=== PATIENT | female | born 1990 | race American Indian/Alaskan Native ===

== ENCOUNTER 2024-10-19 08:18 | Emergency (ER) | payer MEDICAID, SELFPAY ==
[2024-10-19] VITALS (15 sets, daily range): BP systolic 87–105; BP diastolic 45–75; PULSE 53–81; RESP 8–19; TEMP 36.6–36.9; O2SAT 94–100; BMI 20.7
--- NOTE | 2024-10-19 08:25 | ED.SEIZURE ---
HPI - Seizure General Chief Complaint: Seizure Stated Complaint: Seizure Time Seen by Provider: 10/19/24 08:47 Source: patient and EMS History of Present Illness HPI Narrative: Patient is a female with a history of restless leg syndrome and drug/alcohol use who presents with a witnessed seizure in the lobby of a treatment facility. The patient has been clean for about six months and is currently on methadone. She denies any history of seizures, recent drug or alcohol use, or withdrawal seizures. The seizure occurred while she was sitting in a chair, and she did not fall or hit her head. There was no tongue biting, but she did experience urination during the event. The patient is currently on her period and denies any recent fevers or chills. She reports feeling a bit confused post-seizure but is otherwise oriented and able to answer questions. Medications: Methadone Past Medical History: Restless leg syndrome, drug/alcohol use Seizure History: none Review of Systems Review of Systems Narrative: Constitutional: Denies recent fevers or chills, reports feeling a bit confused post-seizure. Neurological: Witnessed seizure, no history of seizures, no tongue biting, postictal confusion. Genitourinary: Urination during seizure, currently on period. Patient History Social History Smoking Status: Current every day smoker Exam Narrative Exam Narrative: General: Well appearing, well nourished, in no distress. Skin: Good turgor, no rash, unusual bruising or prominent lesions. Head: Normocephalic, atraumatic. HEENT: Conjunctiva clear, EOM intact, PERRL, Mucous membranes moist. Neck: Supple, normal ROM. Heart: Regular rate and rhythm, no murmur or gallop or rubs. Lungs: Clear to auscultation. No rales, rhonchi, or wheezes. Abdomen: Soft and nontender. Bowel sounds normal. No mass or hernia. Back: Spine normal without deformity or tenderness, no CVA tenderness. Extremities: No deformities, edema. Peripheral pulses intact. Neurologic: CN 2-12 normal. Normal sensation and motor exam. Psychiatric: Oriented X3. Normal mood and affect. Initial Vital Signs Initial Vital Signs: Vital Signs Pulse Rate 81 10/19/24 08:21 Pulse Oximetry 97 10/19/24 08:21 Course Orders Ordered: ED Orders 10/19/24 08:27 CT head/brain wo con Stat 10/19/24 08:30 EKG-12 Lead Stat 10/19/24 08:50 CBC Auto Diff [Complete Blood Count AUTO DIFF] Stat CMP [Comprehensive Metabolic Panel] Stat Lactate (Lactic Acid) Stat Magnesium Stat 10/19/24 09:18 Urinalysis and Microscopic Stat Urine Culture Stat Discontinued Medications Lactated Ringer's (Lactated Ringers) 1,000 mls @ 1,000 mls/hr IV BOLUS ONE Stop: 10/19/24 09:26 Last Infusion: 10/19/24 11:44 Dose: Infused Documented By: Admin: 10/19/24 09:30 Dose: 1,000 mls/hr Documented By: Vital Signs Vital signs: Vital Signs - 8 hr 10/19/24 08:21 10/19/24 08:30 10/19/24 08:31 Temperature 98 F Pulse Rate 81 73 74 Respiratory Rate 19 16 Blood Pressure 105/75 Pulse Oximetry 97 98 100 Oxygen Delivery Method Room Air 10/19/24 09:10 10/19/24 09:11 10/19/24 09:11 Temperature Pulse Rate 66 66 Respiratory Rate 18 Blood Pressure 104/65 Pulse Oximetry 96 95 Oxygen Delivery Method Room Air 10/19/24 09:30 10/19/24 09:30 10/19/24 10:00 Temperature Pulse Rate 67 62 Respiratory Rate 15 10 L Blood Pressure 94/58 L Pulse Oximetry 95 98 Oxygen Delivery Method 10/19/24 10:00 10/19/24 10:30 10/19/24 10:30 Temperature Pulse Rate 54 L Respiratory Rate 10 L Blood Pressure 97/73 96/59 L Pulse Oximetry 96 Oxygen Delivery Method 10/19/24 11:00 10/19/24 11:00 Temperature Pulse Rate 54 L Respiratory Rate 8 L Blood Pressure 92/61 Pulse Oximetry 96 Oxygen Delivery Method MDM - Seizure Lab Data 10/19/24 08:50 10/19/24 08:50 Labs: Lab Results 10/19/24 10/19/24 Range/Units 08:50 09:18 WBC 6.9 (4.5-11.0) X10^3/uL RBC 4.47 (4.0-5.2) X10^6/uL Hgb 13.2 (12.0-16.0) g/dL Hct 39.6 (36-46) % MCV 88.5 (80-100) fL MCH 29.6 (26-34) PG MCHC 33.4 (30-36) % RDW 14.4 (11.6-14.8) % Plt Count 186 (150-400) X10^3/uL Neut % (Auto) 59.6 (50-75) % Lymph % (Auto) 25.9 (25-40) % [place] % (Auto) 5.4 (3-14) % Eos % (Auto) 8.6 H (2-4) % Baso % (Auto) 0.5 (0-2) % Neut # (Auto) 4100 (5129-3030) /uL Lymph # (Auto) 1800 (5829-2656) /uL [place] # (Auto) 400 (0-900) /uL Eos # (Auto) 600 H (0-450) /uL Baso # (Auto) 0 (0-100) /uL Sodium 140 (137-145) mmol/L Potassium 3.6 (3.4-5.1) mmol/L Chloride 103 (98-107) mmol/L Carbon Dioxide 27 (22-32) mmol/L BUN 15 (7-17) mg/dL Creatinine 0.94 (0.52-1.04) mg/dL Estimated GFR > 60 (>60) mL/min BUN/Creatinine Ratio 16.0 (6-22) Glucose 108 H (70-100) mg/dL Lactate 1.7 (0.7-2.1) mmol/L Calcium 9.1 (8.4-10.2) mg/dL Magnesium 1.7 (1.6-2.3) mg/dL Total Bilirubin 0.3 (0.2-1.3) mg/dL AST 35 (14-36) IU/L ALT 23 (<35) IU/L Alkaline Phosphatase 73 (38-126) U/L Total Protein 8.4 H (6.3-8.2) g/dL Albumin 4.5 (3.5-5.0) g/dL Globulin 3.9 (1.7-4.1) g/dL Albumin/Globulin Ratio 1.2 (1.0-2.8) Urine Color Yellow Urine Appearance Clear Urine pH 7.0 (4.5-8.0) Ur Specific [place] 1.025 (1.000-1.035) Urine Protein 3+ H (Negative) Urine Glucose (UA) Negative (Negative) g/dL Urine Ketones Trace H (NEGATIVE) Urine Occult Blood 2+ H (Negative) Urine Nitrate Positive H (Negative) Urine Bilirubin Negative (NEGATIVE) Urine Urobilinogen 1.0 (0.2) E.U./dL Ur Leukocyte Esterase Negative (NEGATIVE) Urine RBC 1-5/hpf (0-5/HPF) Urine WBC 1-5/hpf (0-5/HPF) Ur Squamous Epith Cells 1-5 /hpf (0-5/HPF) Urine Bacteria Many (>30) H (None) Ur Culture Indicated? Specimen cultured Vol Urine Centrifuged 10ml (spun) Point of Care Testing Test Results Negative On evaluation of lab data patient does not have significant leukocytosis, hemoglobin within normal limits, platelet count 186. - test negative doubt eclampsia -patient is electrolyte panel within normal limits with no signs of electrolyte abnormalities that would have caused the seizure no signs of significant hyponatremia, normal LFTs, intact renal function lactate not significantly elevated. Imaging Data CT scan - head: Attestation: I personally reviewed and interpreted this imaging study as follows: My Impression: On independent evaluation I see no signs of large mass, bleed or other acute intracranial abnormality Radiologist's Impression: Radiology read confirms no acute intracranial abnormality. ECG Data Attestation: I personally reviewed and interpreted this ECG as follows: Interpretation: On independent review of patient's EKG she has a normal sinus rhythm with a rate of 71, OK interval 152, QTC is 341, I do not see any ST segment elevation meeting STEMI criteria no significant abnormalities concerning for cardiac ischemia on my exam. No prior for comparison MDM Narrative Medical decision making narrative: INITIAL EVALUATION AND PLAN: - Obtain urine sample to check electrolytes and test.-AMS blood glucose 98 just prior to arrival - Perform lab work to check electrolytes. - Obtain a CT scan of the head to rule out any intracranial pathology. - Consult neurology for further evaluation and management. - Consider follow-up at a neurology clinic or initiation of anti-seizure medication based on neurology recommendations. Differential diagnosis includes but is not limited to: Primary seizure disorder, withdrawal seizure, , eclampsia, intracranial mass, intracranial bleed -consulted Neurology after results of lab and imaging all of which are reassuring and documented above, they do not believe patient needs admission, MRI or EEG at this time. States that she can get this done outpatient no need to initiate Keppra or other antiepileptic medications at this time Will give patient information for following up with the Neurology Clinic and discharged with return precautions. Discharge Plan Departure Patient Disposition: Home Clinical Impression: Generalized seizure, New onset seizure Activity Restrictions/Additional Instructions: Nearest seen in the emergency department today for a new onset seizure, fortunately your lab work and imaging was reassuring however you will need to follow-up with your primary care doctor as soon as possible and get a consultation for a neurologist in order to get an EEG done and an MRI done in the future. Please do not drive until you are cleared by the neurologist. Your primary care doctor is Dr. Anne-Marie Chapa, phone [phone] located at [address] Stand Alone Forms: Patient Portal/API/Survey
--- NOTE | 2024-10-19 08:27 | DI.CT.S_ITS ---
PROCEDURE: CT HEAD/BRAIN WO CON INDICATIONS: First-time seizure TECHNIQUE: Noncontrast 4.5 mm thick angled axial sections acquired from the foramen magnum to the vertex, with coronal and sagittal reformats. For radiation dose reduction, the following was used: automated exposure control, adjustment of mA and/or kV according to patient size. COMPARISON: None. FINDINGS: Image quality: Diagnostic. CSF spaces: Basal cisterns are patent. No extra-axial fluid collections. Ventricles are normal in size and shape. Brain: No midline shift. No intracranial masses or hemorrhage. Root-white matter interface is normal. Skull and face: Calvarium and visualized facial bones are intact, without suspicious lesions. Sinuses: Visualized sinuses and mastoids are clear. IMPRESSION: No acute intracranial pathology. Approved by: Yaniv Parra M.D. on 10/19/2024 at 8:23
--- NOTE | 2024-10-19 08:30 | EKG_ITS ---
[id number], [place] [address] Test Date: 2024-10-19 Pat Name: Cathi Garnica Department: Room: Gender: Female Staffing Account Manager: LEAH : 1990 Requested By: Order Number: [id number] Reading MD: Gideon Collins MD Measurements Intervals [place] Rate: 71 P: 59 DE: 152 QRS: 59 QRSD: 78 T: 47 QT: 314 QTc: 341 Interpretive Statements Normal sinus rhythm ST & T wave abnormality, consider inferior ischemia NO PRIOR TRACING Electronically Signed On 10-19-2024 9:32:01 PST by Gideon Collins MD
[2024-10-19 09:00] LABS: Add Manual Diff / Slide Review NO; Basophils Absolute Auto 0 /uL (0-100); Basophils Percent Auto 0.5 % (0-2); Eosinophils Absolute Auto 600 /uL (0-450); Eosinophils Percent Auto 8.6 % (2-4); Hematocrit 39.6 % (36-46); Hemoglobin 13.2 g/dL (12.0-16.0); Lymphocytes Absolute Auto 1800 /uL (1100-4500); Lymphocytes Percent Auto 25.9 % (25-40); Mean Corpuscular HGB Conc 33.4 % (30-36); Mean Corpuscular Hemoglobin 29.6 PG (26-34); Mean Corpuscular Volume 88.5 fL (80-100); Monocytes Absolute Auto 400 /uL (0-900); Monocytes Percent Auto 5.4 % (3-14); Neutrophils Absolute Auto 4100 /uL (1500-7000); Neutrophils Percent Auto 59.6 % (50-75); Platelet Count 186 X10^3/uL (150-400); Red Blood Cell Count 4.47 X10^6/uL (4.0-5.2); Red Cell Distribution Width 14.4 % (11.6-14.8); White Blood Cell Count 6.9 X10^3/uL (4.5-11.0)
[2024-10-19 09:23] LABS: Alanine Aminotransferase 23 IU/L (<35); Albumin 4.5 g/dL (3.5-5.0); Albumin Globulin Ratio 1.2 (1.0-2.8); Alkaline Phosphatase 73 U/L (38-126); Aspartate Aminotransferase 35 IU/L (14-36); Bilirubin Total 0.3 mg/dL (0.2-1.3); Blood Urea Nitrogen 15 mg/dL (7-17); Calcium 9.1 mg/dL (8.4-10.2); Carbon Dioxide 27 mmol/L (22-32); Chloride 103 mmol/L (98-107); Estimated Glomerular Filt Rate > 60 mL/min (>60); Globulin 3.9 g/dL (1.7-4.1); Glucose 108 mg/dL (70-100); HEMOLYSIS < 15 (0-50); Magnesium 1.7 mg/dL (1.6-2.3); Potassium 3.6 mmol/L (3.4-5.1); Sodium 140 mmol/L (137-145); Total Protein 8.4 g/dL (6.3-8.2)
[2024-10-19 09:24] LABS: Lactate (Lactic Acid) 1.7 mmol/L (0.7-2.1)
[2024-10-19] MEDS: LACTATED RINGERS 1,000 ML 1000 ML IV (09:30)
[2024-10-19 09:31] LABS: Appearance Urine UA CLEAR; Bilirubin Urine UA NEGATIVE (NEGATIVE); Color Urine UA YELLOW; Glucose Urine UA NEGATIVE (Negative); Ketones Urine UA TRACE (NEGATIVE); Leukocyte Esterase Urine UA NEGATIVE (NEGATIVE); Nitrite Urine UA POSITIVE (Negative); Occult Blood Urine UA 2+ (Negative); Protein Urine UA 3+ (Negative); Specific Gravity Urine UA 1.025 (1.000-1.035)
[2024-10-19 09:43] LABS: Bacteria Urine Many (>30); Culture Indicated Urine Specimen Cultured; RBC Urine 1-5/HPF (0-5/HPF); Squamous Epithelial Cell Urine 1-5 /HPF (0-5/HPF); Urine Volume 10mL (spun); WBC Urine 1-5/HPF (0-5/HPF)
== END 2024-10-19 13:14 | disposition home or self-care (01) ==
PROVIDERS: Emergency Provider Emergency Medicine
DX: G40.909 Epilepsy, unspecified, not intractable, without status epilepticus (principal); R07.9 Chest pain, unspecified
CPT/HCPCS: 70450; 80053; 81001; 81025; 83605; 83735; 85025; 87077; 87086; 87186; 93005; 93010; 99283; 99284

== ENCOUNTER 2024-11-06 08:38 | Emergency (ER) | payer MEDICAID, SELFPAY ==
[2024-11-06] VITALS (7 sets, daily range): BP systolic 108–139; BP diastolic 65–86; PULSE 52–58; RESP 12–18; TEMP 36.8; O2SAT 95–98; BMI 23.3
--- NOTE | 2024-11-06 08:50 | EKG_ITS ---
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
--- NOTE | 2024-11-06 08:58 | DI.RAD.S_ITS ---
PROCEDURE: XR CHEST 1V INDICATIONS: chest pain TECHNIQUE: One view of the chest was acquired. COMPARISON: None. FINDINGS: Surgical changes and devices: None. Lungs and pleura: Lungs are clear. No pleural effusions or pneumothorax. Mediastinum: Mediastinal contours appear normal. Heart size is normal. Bones and chest wall: No suspicious bony lesions. Overlying soft tissues appear unremarkable. IMPRESSION: No acute cardiopulmonary pathology. Dictated by: Joesph Vu M.D. on 11/06/2024 at 9:54 Approved by: Joesph Vu M.D. on 11/06/2024 at 9:54
--- NOTE | 2024-11-06 09:12 | ED_ITS ---
HPI - General Adult General Chief complaint: Arrhythmia/Palpitations Stated complaint: irregular heart beat, not feeling well Time Seen by Provider: 11/06/24 09:01 History of Present Illness HPI narrative: 34-year-old woman with a history of polysubstance use disorder, currently on methadone with no returned to use for about 6 months had a witnessed seizure in mid September while at her addiction care facility was evaluated in the emergency department and instructed to call Neurology to follow up with no recommendations for seizure prophylaxis. Her [facility] care [facility], she does have a family physician of the [facility] clinic. She has seeing a counselor, there has been discussion of panic attacks and consideration for antidepressants but she has not schedule an appointment with her physician of the lump clinic. She notes that over the past 4 days she has been having episodes where she gets anxious, feels like her heart is going fast, her chest is tight with significant increased anxiety. Not associated with activity, position, no overt chest pain. No recent fever chills cough, nausea, vomiting, diarrhea. She states she has had symptoms like this before and thought it was a panic attack. Related Data Previous Rx's Medication Instructions Recorded cephalexin 500 mg capsule 500 mg PO TID #21 caps 11/06/24 Allergies Allergy/AdvReac Type Severity Reaction Status Date / Time No Known Drug Allergies Allergy Verified 11/06/24 09:02 Review of Systems Review of Systems Narrative: Pertinent positive and negative findings as per HPI Patient History Medical History (Updated 11/06/24 @ 11:08 by Tabitha Navarro MD) Opioid use disorder Social History Smoking Status: Current every day smoker Smoking Status: Current every day smoker Exam Initial Vital Signs Initial Vital Signs: Vital Signs Temperature 98.3 F 11/06/24 08:39 Pulse Rate 55 L 11/06/24 08:39 Respiratory Rate 14 11/06/24 08:39 Blood Pressure 139/86 11/06/24 08:39 Pulse Oximetry 97 11/06/24 08:39 Oxygen Delivery Method Room Air 11/06/24 08:39 General: Healthy appearing, in no acute distress. Able to give a complete and coherent history. Well-nourished well-developed HEENT: Moist mucous membranes, normal sclera with reactive pupils, Respiratory: Lungs are clear to auscultation, no wheezing no rales no rhonchi. Full and symmetrical air movement Cardiac: Regular rate and rhythm no murmurs no bruits Abdomen: Soft, nontender, good bowel tones, no flank pain Skin: Warm and dry, no rashes Neurologic: Grossly neurologically intact with no obvious asymmetries or abnormalities Extremities: No trauma, well perfused Psych: Cooperative, quite anxious but focused with good eye contact and fluent speech Course Orders Ordered: ED Orders 11/06/24 08:58 XR chest 1V Stat EKG-12 Lead Stat 11/06/24 09:11 Complete Blood Count AUTO DIFF Stat Comprehensive Metabolic Panel Stat Lipase Stat Magnesium Stat NT-proBNP (BNP-Adult 18+) Stat PTT Partial Thromboplastin [place] Stat Prothrombin Time INR Stat TSH w/ Reflex to FT4 Stat Troponin & CK Cardiac Panel Stat 11/06/24 09:40 Urine Microscopic Stat urine tox [Urine Drug Screen, Rapid] Stat Discontinued Medications Aspirin (Aspirin 81 Mg Chew Tab) 324 mg PO NOW ONE Stop: 11/06/24 08:58 Last Admin: 11/06/24 09:57 Dose: Not Given Documented By: KM Vital Signs Vital signs: Vital Signs - 8 hr 11/06/24 08:39 11/06/24 09:15 11/06/24 09:30 Temperature 98.3 F Pulse Rate 55 L 58 L Respiratory Rate 14 Blood Pressure 139/86 114/77 Pulse Oximetry 97 96 Oxygen Delivery Method Room Air 11/06/24 09:30 11/06/24 09:43 11/06/24 09:43 Temperature Pulse Rate 57 L 56 L Respiratory Rate 15 15 Blood Pressure 129/70 Pulse Oximetry 95 98 Oxygen Delivery Method 11/06/24 10:00 11/06/24 10:00 11/06/24 10:30 Temperature Pulse Rate 55 L 52 L Respiratory Rate 12 18 Blood Pressure 108/65 Pulse Oximetry 97 96 Oxygen Delivery Method 11/06/24 10:30 Temperature Pulse Rate Respiratory Rate Blood Pressure 111/73 Pulse Oximetry Oxygen Delivery Method Medical Decision Making Lab Data 11/06/24 09:11 11/06/24 09:11 Labs: Lab Results 11/06/24 11/06/24 Range/Units 09:11 09:40 WBC 8.4 (4.5-11.0) X10^3/uL RBC 4.62 (4.0-5.2) X10^6/uL Hgb 13.4 (12.0-16.0) g/dL Hct 40.3 (36-46) % MCV 87.3 (80-100) fL MCH 29.0 (26-34) PG MCHC 33.3 (30-36) % RDW 14.2 (11.6-14.8) % Plt Count 154 (150-400) X10^3/uL Neut % (Auto) 89.8 H (50-75) % Lymph % (Auto) 6.2 L (25-40) % [place] % (Auto) 3.5 (3-14) % Eos % (Auto) 0.3 L (2-4) % Baso % (Auto) 0.2 (0-2) % Neut # (Auto) 7500 H (8176-2501) /uL Lymph # (Auto) 500 L (8359-5036) /uL [place] # (Auto) 300 (0-900) /uL Eos # (Auto) 0 (0-450) /uL Baso # (Auto) 0 (0-100) /uL PT 12.5 (9.4-12.5) SECONDS INR 1.1 (0.9-1.3) APTT 38 H (25.1-36.5) SECONDS Sodium 140 (137-145) mmol/L Potassium 4.3 (3.4-5.1) mmol/L Chloride 103 (98-107) mmol/L Carbon Dioxide 27 (22-32) mmol/L BUN 8 (7-17) mg/dL Creatinine 0.77 (0.52-1.04) mg/dL Estimated GFR > 60 (>60) mL/min BUN/Creatinine Ratio 10.4 (6-22) Glucose 108 H (70-100) mg/dL Calcium 9.0 (8.4-10.2) mg/dL Magnesium 1.8 (1.6-2.3) mg/dL Total Bilirubin 0.4 (0.2-1.3) mg/dL AST 29 (14-36) IU/L ALT 21 (<35) IU/L Alkaline Phosphatase 64 (38-126) U/L Total Creatine Kinase 75 (30-135) U/L Troponin I < 0.012 (0.01-0.034) ng/mL NT-Pro-B Natriuret Pep 642 H (<125) pg/mL Total Protein 8.7 H (6.3-8.2) g/dL Albumin 4.6 (3.5-5.0) g/dL Globulin 4.1 (1.7-4.1) g/dL Albumin/Globulin Ratio 1.1 (1.0-2.8) Lipase 50 (23-300) U/L TSH 0.95 (0.47-4.68) uIU/mL U Opiates 300ng/mL cut Negative (Negative) Ur Oxycodone Screen Negative (Negative) Urine Methadone Screen Positive H (Negative) Ur Barbiturates Screen Negative (Negative) U Tricyclic Antidepress Negative (Negative) Ur Phencyclidine Scrn Negative (Negative) Ur Amphetamines Screen Negative (Negative) U Methamphetamines Scrn Negative (Negative) Ur MDMA Scrn (Ecstasy) Negative (Negative) U Benzodiazepines Scrn Negative (Negative) Urine Cocaine Screen Negative (Negative) U Marijuana (THC) Screen Positive H (Negative) Urine pH Normal (Normal) Urine Specific [place] Normal (Normal) Ur Creatinine Normal (Normal) Point of Care Testing Test Results Negative Urine Dip Bedside Urine Glucose Negative Bedside Urine Bilirubin - Negative Bedside Urine Ketone - Negative Urine Specific [place] 1.010 Bedside Urine Occult Blood ++ Bedside Urine pH 6.0 Bedside Urine Protein - Negative Bedside Urine Urobilinogen - Negative Bedside Urine Nitrite - Negative Bedside Urine Leukocytes - Negative Esterase Point of care testing: Point of Care Testing Test Results Negative Urine Dip Bedside Urine Glucose Negative Bedside Urine Bilirubin - Negative Bedside Urine Ketone - Negative Urine Specific [place] 1.010 Bedside Urine Occult Blood ++ Bedside Urine pH 6.0 Bedside Urine Protein - Negative Bedside Urine Urobilinogen - Negative Bedside Urine Nitrite - Negative Bedside Urine Leukocytes - Negative Esterase [facility] Narrative Medical decision making narrative: CC: Palpitations Complicating co-morbidities: Currently on methadone, Zio patch placed on November 02 for report the palpitations Data collected from: patient Medical records reviewed: Recent ER notes with the patient's seen for seizure reviewed Differential considered: PACs, PVCs, SVT, V-tach, anxiety, panic attacks Exam documented above, pertinent findings include: Patient is anxious but alert and appropriate. She has a Zio patch in place. Exam is entirely benign Lab Test results independently reviewed as above. Pertinent findings: CBC is unremarkable Chemistries are reassuring Troponin is undetectable BNP is minimally elevated Lipase is normal TSH is appropriate Urine tox screen shows methadone and marijuana only Urinalysis shows protein, trace ketones occult blood nitrites bacteria - Independently reviewed EKG: Sinus bradycardia at a rate of 51, heal acute ischemic changes Imaging studies independently reviewed: Chest x-ray is reassuring Re-evaluations: Patient was diagnosed with an E coli urinary tract infection on October 19 and did not take any antibiotics. It is sensitive to cefazolin Discussion: 34-year-old woman with a sensation of palpitations that has been increasing over the days. Cardiac evaluation she is reassuring. She does not show signs of clinical heart failure, cardiomyopathy, significant electrolyte abnormalities. Her urine suggest that she may still have a low-grade bladder infection go ahead and treat this and see if it influences her symptoms overall. Thyroid studies are appropriate, there was no anemia, no acute coronary syndrome. No methamphetamine or other stimulants appreciated on urine toxicology. Anxiety and panic attacks maybe contributing, we will ask her to talk with her primary care physician to discuss more effective treatment of anxiety and depression. At this time there is no indication for additional imaging studies are inpatient stay she is safe for discharge Discharge Plan Departure Patient Disposition: Home Clinical Impression: Palpitations UTI (urinary tract infection) Qualifiers: Urinary tract infection type: acute cystitis Hematuria presence: with hematuria Qualified Code(s): N30.01 - Acute cystitis with hematuria Instructions: DI for Urinary Tract Infection (UTI), DI for Palpitations Activity Restrictions/Additional Instructions: Thank you for coming in today Your workup was reassuring. There was no sign of heart attack, enlarged heart, lung injury, infection, anemia, kidney or electrolyte abnormalities or other life-threatening findings that might explain your heart palpitations. You do still have the bladder infection that we found on October 19. I am going to give you a written prescription for cephalexin, please do fill it and completed. If this is contributing in any way to the palpitation symptoms, it will be helpful. With your current Zio patch in place sounds like you are on the right track with your primary care providers to continue this workup as an outpatient. Please do continue further discussion of anxiety and depression with your primary care provider's If you find that you are getting worse or develop any new symptoms, please feel free to return to the emergency department for further evaluation. Prescriptions: New cephalexin 500 mg capsule 500 mg PO TID Qty: 21 0RF Stand Alone Forms: Patient Portal/API/Survey
[2024-11-06 09:18] LABS: Add Manual Diff / Slide Review NO; Basophils Absolute Auto 0 /uL (0-100); Basophils Percent Auto 0.2 % (0-2); Eosinophils Absolute Auto 0 /uL (0-450); Eosinophils Percent Auto 0.3 % (2-4); Hematocrit 40.3 % (36-46); Hemoglobin 13.4 g/dL (12.0-16.0); Lymphocytes Absolute Auto 500 /uL (1100-4500); Lymphocytes Percent Auto 6.2 % (25-40); Mean Corpuscular HGB Conc 33.3 % (30-36); Mean Corpuscular Volume 87.3 fL (80-100); Monocytes Absolute Auto 300 /uL (0-900); Monocytes Percent Auto 3.5 % (3-14); Neutrophils Absolute Auto 7500 /uL (1500-7000); Neutrophils Percent Auto 89.8 % (50-75); Platelet Count 154 X10^3/uL (150-400); Red Blood Cell Count 4.62 X10^6/uL (4.0-5.2); Red Cell Distribution Width 14.2 % (11.6-14.8); White Blood Cell Count 8.4 X10^3/uL (4.5-11.0)
[2024-11-06 09:26] LABS: INR 1.1 (0.9-1.3); Prothrombin Time 12.5 SECONDS (9.4-12.5)
[2024-11-06 09:29] LABS: PTT Partial Thromboplastin Tim 38 SECONDS (25.1-36.5)
[2024-11-06 09:36] LABS: Alanine Aminotransferase 21 IU/L (<35); Albumin 4.6 g/dL (3.5-5.0); Albumin Globulin Ratio 1.1 (1.0-2.8); Alkaline Phosphatase 64 U/L (38-126); Aspartate Aminotransferase 29 IU/L (14-36); BUN Creatinine Ratio 10.4 (6-22); Bilirubin Total 0.4 mg/dL (0.2-1.3); Blood Urea Nitrogen 8 mg/dL (7-17); Carbon Dioxide 27 mmol/L (22-32); Chloride 103 mmol/L (98-107); Creatine Kinase 75 U/L (30-135); Estimated Glomerular Filt Rate > 60 mL/min (>60); Globulin 4.1 g/dL (1.7-4.1); Glucose 108 mg/dL (70-100); HEMOLYSIS 19 (0-50); Lipase 50 U/L (23-300); Magnesium 1.8 mg/dL (1.6-2.3); Potassium 4.3 mmol/L (3.4-5.1); Sodium 140 mmol/L (137-145); Total Protein 8.7 g/dL (6.3-8.2)
[2024-11-06 09:48] LABS: NT-proBNP (BNP-Adult 18+) 642 pg/mL (<125); Troponin I < 0.012 ng/mL (0.01-0.034)
[2024-11-06 10:12] LABS: Ur Creatinine Normal (Normal); Ur Specific Gravity Normal (Normal); Urine pH Normal (Normal)
[2024-11-06 10:13] LABS: Urine Tetrahydrocannabinol Positive (Negative)
[2024-11-06 10:15] LABS: UR Morphine/Opiate cutoff 300 Negative (Negative); Urine Amphetamines Negative (Negative); Urine Barbiturates Negative (Negative); Urine Benzodiazepines Negative (Negative); Urine Cocaine Negative (Negative); Urine MDMA Negative (Negative); Urine Methamphetamines Negative (Negative); Urine Phencyclidine Negative (Negative)
[2024-11-06 10:16] LABS: Urine Methadone Positive (Negative); Urine Oxycodone Negative (Negative); Urine Tricyclic Antidepressant Negative (Negative)
[2024-11-06 10:47] LABS: TSH w/ Reflex to FT4 0.95 uIU/mL (0.47-4.68)
[2024-11-06 10:59] LABS: Bacteria Urine None Seen; Culture Indicated Urine Cult Not Indicated; RBC Urine 0-1/HPF (0-5/HPF); Squamous Epithelial Cell Urine 0-1 /HPF (0-5/HPF); Urine Volume 10mL (spun); WBC Urine 0-1/HPF (0-5/HPF)
== END 2024-11-06 11:17 | disposition home or self-care (01) ==
PROVIDERS: Emergency Provider Emergency Medicine
DX: R00.2 Palpitations (principal); N30.01 Acute cystitis with hematuria; R07.89 Other chest pain; F41.9 Anxiety disorder, unspecified
CPT/HCPCS: 36415; 71045; 80053; 80305; 81003; 81015; 81025; 82550; 83690; 83735; 83880; 84443; 84484; 85025; 85610; 85730; 93005; 99284